=== PATIENT | female | born 1935 | race Caucasian/White ===

== ENCOUNTER 2025-05-27 11:01 | Emergency (ER) | payer MEDICAID ==
[~2025-05-27] VITALS: Ht 149.9 cm; Wt 55.0 kg
[2025-05-27 11:08] VITALS: TEMP 36.9; O2SAT 96
[2025-05-27] MEDS: KETOROLAC 15MG/ML VIAL IM ONE (11:30)
[2025-05-27] MEDS ORDERED: IBUP-2029 MT (13:03)
[2025-05-27 13:42] VITALS: BP 126/66; PULSE 84; RESP 15; O2SAT 98
== END 2025-05-27 14:18 | disposition home or self-care (01) ==
LOC: ER 11:01
DX: S82.142A Displaced bicondylar fracture of left tibia, initial encounter for closed fracture (principal); I10 Essential (primary) hypertension; E03.9 Hypothyroidism, unspecified; W19.XXXA Unspecified fall, initial encounter; Y93.89 Activity, other specified; Y92.89 Other specified places as the place of occurrence of the external cause; Y99.8 Other external cause status
CPT/HCPCS: 99283; 29505; 73562; 96372; J1885

== ENCOUNTER 2025-06-15 11:13 | Inpatient (IN) | payer MEDICAID ==
[2025-06-15] VITALS (9 sets, daily range): BP systolic 76–149; BP diastolic 48–79; PULSE 88–107; RESP 14–22; TEMP 36.4–36.4736; O2SAT 100
[~2025-06-15] VITALS: Ht 152.4 cm; Wt 69.4 kg
[~2025-06-15 11:13] MED LIST: IBUP-1455 MT
[2025-06-15 12:34] LABS: CLARITY URINE TURBID (CLEAR); COLOR URINE DARK YELLOW (YELLOW); GLUCOSE URINE NEGATIVE (NEGATIVE); KETONES URINE NEGATIVE (NEGATIVE); LEUKOCYTE ESTERASE URINE 3+ (NEGATIVE); NITRITE URINE NEGATIVE (NEGATIVE); OCCULT BLOOD URINE 3+ (NEGATIVE); PH URINE 5.5 (4.5-8.0); PROTEIN URINE 2+ (NEGATIVE); SPECIFIC GRAVITY URINE 1.015 (1.005-1.030); UROBILINOGEN URINE 1.0 E.U./dL (0.2-1.0)
[2025-06-15 12:55] LABS: WBC URINE 50-100 /hpf (0-2)
[2025-06-15 12:56] LABS: BACTERIA URINE 3+; RBC URINE 50-100 /hpf (0-2); SQUAMOUS EPITHELIAL CELL URINE 1+ /lpf (RARE/1+)
[2025-06-15 15:11] LABS: HEMATOCRIT. 34.8 % (36.0-48.0); HEMOGLOBIN. 11.7 g/dL (12.0-16.0); MEAN PLATELET VOLUME 8.1 fl (7.4-10.4); PLATELET 204 x1000/uL (130-400); RED BLOOD CELL COUNT 3.70 mill/uL (4.2-5.4); RED CELL DISTRIBUTION WIDTH 14.7 % (11.6-14.6)
[2025-06-15] MEDS: SODIUM CHLORIDE 0.9% 1,000 ML IV ONE ×2 (15:11→20:29)
[2025-06-15 15:18] LABS: INR 1.0
[2025-06-15 15:23] LABS: CREATININE 2.2 mg/dL (0.6-1.0); TROPONIN I HIGH SENSITIVITY 16 ng/L (3.0-34)
[2025-06-15 15:24] LABS: UREA NITROGEN BLOOD 45 mg/dL (9-23)
[2025-06-15 15:25] LABS: ASPARTATE AMINOTRANSFERASE 35 IU/L (<34)
[2025-06-15 15:26] LABS: BILIRUBIN DIRECT 0.3 mg/dL (<=3.0); BILIRUBIN TOTAL 0.7 mg/dL (0.1-1.0); PROTEIN TOTAL 6.6 g/dL (6.0-8.3)
[2025-06-15] MEDS: CEFTRIAXONE 1GM/50ML 50 ML IV ONE (15:39)
[2025-06-15] MEDS: SODIUM CHLORIDE 0.9% (SEPSIS BOLUS) IV ONE (15:39)
[2025-06-15 15:43] LABS: LYMPHOCYTES % MANUAL 11.0 % (20.0-60.0); MONOCYTES % MANUAL 5.0 % (2.0-8.0); NEUTROPHILS % MANUAL 84.0 % (45.0-75.0); PLATELET ESTIMATE NORMAL
[2025-06-15 17:19] LABS: TROPONIN I HIGH SENSITIVITY 15 ng/L (3.0-34)
[2025-06-15] MEDS ORDERED: NOREPINEPHRINE 8 MG in DEXT 5% WATER 242 ML IV STA (19:10)
[2025-06-15] MEDS ORDERED: NOREPINEPHRINE 8MG/250ML PMX 250 ML IV ONE (19:12)
[2025-06-15] MEDS: NOREPINEPHRINE 8MG/250ML PMX 250 ML IV ONE (19:22)
[2025-06-15] MEDS ORDERED: PHENYLEPHRINE 50MG/250ML PMX 250 ML IV PRN (19:45)
[2025-06-15] MEDS ORDERED: VASOPRESSIN 20 UNIT in SODIUM CHLORIDE 0.9% 99 ML IV PRN (19:45)
[2025-06-15] MEDS ORDERED: IOHEXOL-350 100 ML BOTTLE ONE (20:16)
[2025-06-15] MEDS ORDERED: ONDANSETRON HCL 4MG/2ML INJ IV PRN (22:00)
[2025-06-15] MEDS ORDERED: ACETAMINOPHEN 325MG TABLET PO PRN ×2 (22:00)
[2025-06-15] MEDS: PANTOPRAZOLE SODIUM 40 MG/VIAL IV SCH (22:48)
[2025-06-15] MEDS ORDERED: LEVO100T9 PO (22:51)
[2025-06-15] MEDS ORDERED: AMI2 MT (22:52)
[2025-06-15] MEDS ORDERED: SACU1TAB7 MT (22:53)
[2025-06-15] MEDS: SODIUM CHLORIDE 0.9% 1,000 ML IV SCH (23:03)
[2025-06-15] MEDS: NOREPINEPHRINE 8MG/250ML PMX 250 ML IV PRN (23:32)
[2025-06-16] VITALS (90 sets, daily range): BP systolic 72–137; BP diastolic 41–91; PULSE 60–92; RESP 11–26; TEMP 35.9–36.6; O2SAT 78–100
[2025-06-16 06:07] LABS: HEMATOCRIT. 27.1 % (36.0-48.0); HEMOGLOBIN. 8.7 g/dL (12.0-16.0); MEAN PLATELET VOLUME 8.0 fl (7.4-10.4); PLATELET 152 x1000/uL (130-400); RED BLOOD CELL COUNT 2.80 mill/uL (4.2-5.4); RED CELL DISTRIBUTION WIDTH 15.2 % (11.6-14.6)
[2025-06-16 06:24] LABS: CREATININE 2.0 mg/dL (0.6-1.0); TRIGLYCERIDE 176 mg/dL (0-150); UREA NITROGEN BLOOD 52 mg/dL (9-23)
[2025-06-16 06:25] LABS: LDL CHOLESTEROL 42 mg/dL (5-100)
[2025-06-16] MEDS: LEVOTHYROXINE SODIUM 100MCG TABLET PO SCH (06:25)
[2025-06-16 06:29] LABS: T4 FREE 0.96 ng/dL (0.89-1.76)
[2025-06-16 07:22] LABS: FOLIC ACID (FOLATE) SERUM 8.47 ng/mL (>5.38)
[2025-06-16 07:42] LABS: VITAMIN B12 SERUM > 2000 pg/mL (211-911)
[2025-06-16] MEDS: AMIODARONE 200MG TABLET PO SCH (08:26)
[2025-06-16 09:32] LABS: BAND% 17.0 % (1.0-6.0); LYMPHOCYTES % MANUAL 2.0 % (20.0-60.0); MONOCYTES % MANUAL 4.0 % (2.0-8.0); NEUTROPHILS % MANUAL 77.0 % (45.0-75.0)
[2025-06-16 09:33] LABS: PLATELET ESTIMATE NORMAL
[2025-06-16] MEDS ORDERED: CEFEPIME 1GM IN DEXT 5% 50ML IV SCH (10:15)
[2025-06-16] MEDS: CEFEPIME 1GM PREMIX 50ML IV SCH (11:28)
[2025-06-16] MEDS ORDERED: CEFTRIAXONE 1GM/50ML 50 ML IV SCH (15:00)
[2025-06-16] MEDS: ENOXAPARIN 30MG/0.3ML SYR SUBCUT SCH (15:51)
[2025-06-17] VITALS (72 sets, daily range): BP systolic 80–151; BP diastolic 48–105; PULSE 66–87; RESP 13–25; TEMP 36.1–36.7; O2SAT 79–100
[2025-06-17 04:43] LABS: CREATININE 1.6 mg/dL (0.6-1.0)
[2025-06-17 04:44] LABS: UREA NITROGEN BLOOD 36 mg/dL (9-23)
[2025-06-17 04:46] LABS: PHOSPHORUS 2.8 mg/dL (2.5-4.9)
[2025-06-17 05:17] LABS: HEMATOCRIT. 28.9 % (36.0-48.0); HEMOGLOBIN. 9.7 g/dL (12.0-16.0); MEAN PLATELET VOLUME 8.3 fl (7.4-10.4); PLATELET 167 x1000/uL (130-400); RED BLOOD CELL COUNT 3.05 mill/uL (4.2-5.4); RED CELL DISTRIBUTION WIDTH 14.9 % (11.6-14.6)
[2025-06-17 14:10] LABS: BAND% 15.0 % (1.0-6.0); EOSINOPHILS % MANUAL 1.0 % (0.0-5.0); LYMPHOCYTES % MANUAL 4.0 % (20.0-60.0); MONOCYTES % MANUAL 5.0 % (2.0-8.0); NEUTROPHILS % MANUAL 75.0 % (45.0-75.0); PLATELET ESTIMATE NORMAL
[2025-06-17] MEDS: ASPIRIN 81MG TABLET PO SCH (16:41)
[2025-06-17] MEDS ORDERED: DOCUSATE SODIUM 250MG CAPSULE PO PRN (17:30)
[2025-06-18] VITALS (59 sets, daily range): BP systolic 87–166; BP diastolic 39–112; PULSE 77–100; RESP 14–29; TEMP 36.1–36.7; O2SAT 95–99
[2025-06-18] MEDS: IPRATROPIUM/ALBUTEROL 0.5-3(2.5)MG/3ML NEB HHN PRN (02:36)
[2025-06-18] MEDS ORDERED: MEROPENEM 1,000 MG in SODIUM CHLORIDE 0.9% 100 ML IV SCH (08:30)
[2025-06-18 09:53] LABS: HEMATOCRIT. 28.7 % (36.0-48.0); HEMOGLOBIN. 9.4 g/dL (12.0-16.0); MEAN PLATELET VOLUME 8.5 fl (7.4-10.4); PLATELET 185 x1000/uL (130-400); RED BLOOD CELL COUNT 3.00 mill/uL (4.2-5.4); RED CELL DISTRIBUTION WIDTH 15.2 % (11.6-14.6)
[2025-06-18 10:08] LABS: CREATININE 1.3 mg/dL (0.6-1.0); UREA NITROGEN BLOOD 17.0 mg/dL (9-23)
[2025-06-18] MEDS: MEROPENEM 500MG/50ML IV SCH (10:29)
[2025-06-18 10:57] LABS: BAND% 11.0 % (1.0-6.0); EOSINOPHILS % MANUAL 1.0 % (0.0-5.0); LYMPHOCYTES % MANUAL 5.0 % (20.0-60.0); MONOCYTES % MANUAL 2.0 % (2.0-8.0); NEUTROPHILS % MANUAL 81.0 % (45.0-75.0); PLATELET ESTIMATE NORMAL
[2025-06-19 04:00] VITALS: BP 127/53; PULSE 75; RESP 18; TEMP 36.8; O2SAT 99
[2025-06-19 07:01] LABS: HEMATOCRIT. 23.9 % (36.0-48.0); HEMOGLOBIN. 8.0 g/dL (12.0-16.0); MEAN PLATELET VOLUME 8.2 fl (7.4-10.4); PLATELET 188 x1000/uL (130-400); RED BLOOD CELL COUNT 2.56 mill/uL (4.2-5.4); RED CELL DISTRIBUTION WIDTH 14.9 % (11.6-14.6)
[2025-06-19 07:14] LABS: CREATININE 1.1 mg/dL (0.6-1.0); UREA NITROGEN BLOOD 13 mg/dL (9-23)
[2025-06-19 07:16] LABS: PHOSPHORUS 2.2 mg/dL (2.5-4.9)
[2025-06-19 08:00] VITALS: BP 141/63; PULSE 77; RESP 18; TEMP 36.4; O2SAT 100
[2025-06-19] MEDS: MAGNESIUM 2 G PREMIX 50 ML IV SCH (09:37)
[2025-06-19] MEDS: POTASSIUM CHLORIDE 20MEQ TABLET SR PO SCH (09:38)
[2025-06-19 12:00] VITALS: BP 120/51; PULSE 78; RESP 18; TEMP 36.6; O2SAT 100
[2025-06-19 13:54] LABS: BAND% 13.0 % (1.0-6.0); LYMPHOCYTES % MANUAL 6.0 % (20.0-60.0); MONOCYTES % MANUAL 6.0 % (2.0-8.0); NEUTROPHILS % MANUAL 75.0 % (45.0-75.0); PLATELET ESTIMATE NORMAL
[2025-06-19 16:00] VITALS: BP 134/63; PULSE 79; RESP 18; TEMP 36.3; O2SAT 100
[2025-06-19 20:00] VITALS: BP 109/70; PULSE 79; RESP 19; TEMP 36.5
[2025-06-20] VITALS: BP 148/65; PULSE 79; RESP 19; TEMP 36.6
[2025-06-20 04:00] VITALS: BP 144/57; PULSE 86; RESP 19; TEMP 36.6
[2025-06-20 07:26] LABS: HEMATOCRIT. 26.0 % (36.0-48.0); HEMOGLOBIN. 8.6 g/dL (12.0-16.0); MEAN PLATELET VOLUME 8.5 fl (7.4-10.4); PLATELET 223 x1000/uL (130-400); RED BLOOD CELL COUNT 2.75 mill/uL (4.2-5.4); RED CELL DISTRIBUTION WIDTH 14.9 % (11.6-14.6)
[2025-06-20 07:36] LABS: CREATININE 1.0 mg/dL (0.6-1.0); UREA NITROGEN BLOOD 8.0 mg/dL (9-23)
[2025-06-20 08:00] VITALS: BP 149/64; PULSE 85; RESP 18; TEMP 36.8; O2SAT 95
[2025-06-20] MEDS: POTASSIUM CHLORIDE 10MEQ TABLET SR PO SCH (10:15)
[2025-06-20] MEDS: POTASSIUM CHLORIDE 20MEQ/PACKET PO SCH (10:15)
[2025-06-20] MEDS: KCL 20MEQ/100ML PREMIX 100 ML IV ONE (10:16)
[2025-06-20 12:00] VITALS: BP 138/56; PULSE 18; RESP 18; TEMP 36.7; O2SAT 96
[2025-06-20 12:48] LABS: BAND% 2.0 % (1.0-6.0); EOSINOPHILS % MANUAL 1.0 % (0.0-5.0); LYMPHOCYTES % MANUAL 4.0 % (20.0-60.0); MONOCYTES % MANUAL 1.0 % (2.0-8.0); NEUTROPHILS % MANUAL 92.0 % (45.0-75.0); PLATELET ESTIMATE NORMAL
[2025-06-20 16:00] VITALS: BP 158/73; PULSE 84; RESP 18; TEMP 36.6; O2SAT 100
[2025-06-20 20:00] VITALS: BP 141/74; PULSE 88; RESP 18; TEMP 36.6; O2SAT 98
[2025-06-21] VITALS: BP 135/58; PULSE 70; RESP 18; TEMP 36.7; O2SAT 94
[2025-06-21 04:00] VITALS: BP 148/58; PULSE 67; RESP 17; TEMP 36.8; O2SAT 97
[2025-06-21 07:42] LABS: HEMATOCRIT. 25.6 % (36.0-48.0); HEMOGLOBIN. 8.6 g/dL (12.0-16.0); MEAN PLATELET VOLUME 8.0 fl (7.4-10.4); PLATELET 250 x1000/uL (130-400); RED BLOOD CELL COUNT 2.75 mill/uL (4.2-5.4); RED CELL DISTRIBUTION WIDTH 14.7 % (11.6-14.6)
[2025-06-21 07:59] LABS: CREATININE 1.0 mg/dL (0.6-1.0); UREA NITROGEN BLOOD 6 mg/dL (9-23)
[2025-06-21 08:00] VITALS: BP 155/77; PULSE 79; RESP 18; TEMP 36.5; O2SAT 99
[2025-06-21 08:01] LABS: PHOSPHORUS 1.9 mg/dL (2.5-4.9)
[2025-06-21 12:00] VITALS: BP 160/78; PULSE 80; RESP 18; TEMP 36.6; O2SAT 98
[2025-06-21 16:00] VITALS: BP 166/75; PULSE 86; RESP 20; TEMP 36.9; O2SAT 98
[2025-06-21 17:21] LABS: LYMPHOCYTES % MANUAL 8.0 % (20.0-60.0); MONOCYTES % MANUAL 2.0 % (2.0-8.0); NEUTROPHILS % MANUAL 90.0 % (45.0-75.0); PLATELET ESTIMATE NORMAL
[2025-06-21 20:00] VITALS: BP 167/70; PULSE 80; RESP 20; TEMP 36.9; O2SAT 98
[2025-06-22] VITALS: BP 147/70; PULSE 82; RESP 18; TEMP 37; O2SAT 100
[2025-06-22 01:28] LABS: CLARITY URINE CLEAR (CLEAR); COLOR URINE YELLOW (YELLOW); GLUCOSE URINE NEGATIVE (NEGATIVE); KETONES URINE NEGATIVE (NEGATIVE); LEUKOCYTE ESTERASE URINE 1+ (NEGATIVE); NITRITE URINE NEGATIVE (NEGATIVE); OCCULT BLOOD URINE 1+ (NEGATIVE); PH URINE 7.0 (4.5-8.0); PROTEIN URINE NEGATIVE (NEGATIVE); SPECIFIC GRAVITY URINE 1.007 (1.005-1.030); UROBILINOGEN URINE 0.2 E.U./dL (0.2-1.0)
[2025-06-22 03:27] LABS: SQUAMOUS EPITHELIAL CELL URINE FEW /lpf (RARE/1+)
[2025-06-22 03:32] LABS: BACTERIA URINE NONE SEEN; RBC URINE 0-2 /hpf (0-2)
[2025-06-22 04:00] VITALS: BP 165/83; PULSE 78; RESP 18; TEMP 36.7; O2SAT 98
[2025-06-22 08:00] VITALS: BP 155/87; PULSE 85; RESP 18; TEMP 36.8; O2SAT 98
[2025-06-22] MEDS ORDERED: LIDOCAINE HCL 1% 10 MG/ML 10ML VIAL ONE (11:47)
[2025-06-22] MEDS ORDERED: LEVO100T9 PO (12:56)
[2025-06-22] MEDS ORDERED: AMI2 MT (12:56)
[2025-06-22] MEDS ORDERED: SACU1TAB7 MT (12:56)
[2025-06-22 15:43] VITALS: BP 138/85; PULSE 89; RESP 16; TEMP 97.9
[2025-06-22 16:00] VITALS: BP 138/85; PULSE 89; RESP 16; TEMP 36.6; O2SAT 97
== END 2025-06-22 18:13 | disposition home health service (06) | DRG 720 ==
LOC: ER 11:13 → EDBEDREQ 15:53 → CANBEDREQ 16:14 → EDBEDREQSVC 19:21 → EDBEDREQTM 19:21 → CANRESERV 20:20 → ENRESERV 20:20 → EDBEDREQ 21:10 → EDBEDREQTM 21:10 → MICUSO 22:37 → 8WST 06-18 16:36
PROVIDERS: ADMIT Internal Medicine; ATTEND Internal Medicine
PROC: 5A0935A Assistance with Respiratory Ventilation, Less than 24 Consecutive Hours, High Flow/Velocity Cannula (ICD-10-PCS; 2025-06-18)
PROC: 02HV33Z Insertion of Infusion Device into Superior Vena Cava, Percutaneous Approach (ICD-10-PCS; principal; 2025-06-22)
PROC: B5181ZA Fluoroscopy of Superior Vena Cava using Low Osmolar Contrast, Guidance (ICD-10-PCS; 2025-06-22)
PROC: B548ZZA Ultrasonography of Superior Vena Cava, Guidance (ICD-10-PCS; 2025-06-22)
DX: A41.51 Sepsis due to Escherichia coli [E. coli] (principal); R65.21 Severe sepsis with septic shock; I71.02 Dissection of abdominal aorta; I50.23 Acute on chronic systolic (congestive) heart failure; I82.622 Acute embolism and thrombosis of deep veins of left upper extremity; I82.612 Acute embolism and thrombosis of superficial veins of left upper extremity; E87.20 Acidosis, unspecified; S82.142A Displaced bicondylar fracture of left tibia, initial encounter for closed fracture; E83.51 Hypocalcemia; I80.8 Phlebitis and thrombophlebitis of other sites; I13.0 Hypertensive heart and chronic kidney disease with heart failure and stage 1 through stage 4 chronic kidney disease, or unspecified chronic kidney disease; N10 Acute pyelonephritis; N17.9 Acute kidney failure, unspecified; N18.9 Chronic kidney disease, unspecified; E87.1 Hypo-osmolality and hyponatremia; E87.8 Other disorders of electrolyte and fluid balance, not elsewhere classified; E03.9 Hypothyroidism, unspecified; D50.9 Iron deficiency anemia, unspecified; I10 Essential (primary) hypertension; I71.43 Infrarenal abdominal aortic aneurysm, without rupture; E83.42 Hypomagnesemia; E87.6 Hypokalemia; Z16.12 Extended spectrum beta lactamase (ESBL) resistance; N28.1 Cyst of kidney, acquired; Z90.49 Acquired absence of other specified parts of digestive tract; Z79.899 Other long term (current) drug therapy
CPT/HCPCS: 36415; 36573; 71045; 71275; 74174; 74176; 80048; 80061; 80076; 81003; 82607; 82728; 82746; 83540; 83550; 83605; 83735; 83970; 84100; 84145; 84439; 84443; 84481; 84484; 85025; 87077; 87186; 93005; 93970; 93971; 94640; 94664; 96365; 96367; 96375; 97162; 97166; 99291; A4606; A6449; C1725; J0692; J0696; J1650; J2003; J2185; J2470; J3475; J3480; J3490; J7030; J7060; Q9967